=== PATIENT | female | born 1950 | race Native Hawaiian/Other Pacific Islander ===

== ENCOUNTER 2016-04-23 15:55 | Observation (INO) | payer OTHER ==
[~2016-04-23] VITALS: Ht 162.6 cm; Wt 106.1 kg
[~2016-04-23 15:55] MED LIST: ALBUTEROL0.083 % IN; ALBUTEROL2 MG/5 ML PO; AMOX500C85 PO; AMOX875T8 PO; ATIVAN2 MG PO; DILT30TA24; DILT30TA24 PO; ENALAPRIL10 MG; ENALAPRIL10 MG PO; GLIM4TAB PO; IPRASOL5 IN; LEVO500T PO; LORA2TAB7; MEDROL DOSEPAK4 MG PO; METF500T; METFTAB PO; METHO2.5; METHO2.5 PO; NEURONTIN; SERT100T; SERT100T PO; TRAZ100T PO
[2016-04-23 17:32] VITALS: BP 218/108; TEMP 98.3; Ht 162.6 cm; Wt 106.1 kg
[2016-04-23 18:26] LABS: PLATELET COUNT 277 K/uL (152-353)
[2016-04-23 18:39] LABS: POTASSIUM 3.7 mmol/L (3.6-5.2)
[2016-04-23] MEDS ORDERED: ENALAPRIL5 MG PO (18:55)
[2016-04-23] MEDS ORDERED: DULO30CA PO (18:56)
[2016-04-23] MEDS ORDERED: TRAM50TA PO (18:57)
[2016-04-23] MEDS ORDERED: SIMV10TA PO (18:57)
[2016-04-23] MEDS ORDERED: ASA LOW DOSE81 MG PO (18:58)
[2016-04-23] MEDS ORDERED: D31000 UNIT PO (18:59)
[2016-04-23] MEDS ORDERED: FLUTICASONE50 MCG (18:59)
[2016-04-23] MEDS ORDERED: VESICARE5 MG PO (19:00)
[2016-04-23] MEDS ORDERED: KETO2CRE EX (19:01)
[2016-04-23] MEDS ORDERED: INSUINJP SC (19:02)
[2016-04-23] MEDS ORDERED: HUMULIN R1 M1 SC (19:04)
[2016-04-23 20:00] VITALS: BP 215/70; TEMP 97.6
[2016-04-24] VITALS: BP 152/83; TEMP 98
[2016-04-24 04:00] VITALS: BP 196/70; TEMP 98
[2016-04-24 06:41] LABS: PLATELET COUNT 254 K/uL (152-353)
[2016-04-24 06:58] LABS: POTASSIUM 3.7 mmol/L (3.6-5.2)
[2016-04-24 08:30] VITALS: BP 195/78; TEMP 98.5
[2016-04-24 12:00] VITALS: BP 188/69; TEMP 98.5
[2016-04-24 16:00] VITALS: BP 160/82; TEMP 98.7
[2016-04-24 21:25] VITALS: BP 154/55; TEMP 98
[2016-04-25 00:11] VITALS: BP 173/68; TEMP 97.9
[2016-04-25 04:00] VITALS: BP 155/68; TEMP 97.7
[2016-04-25 05:29] LABS: PLATELET COUNT 239 K/uL (152-353)
[2016-04-25 05:50] LABS: POTASSIUM 3.9 mmol/L (3.6-5.2)
[2016-04-25 08:09] VITALS: BP 166/63; TEMP 98
[2016-04-25 12:03] VITALS: BP 158/55; TEMP 97.8
== END 2016-04-25 13:52 | disposition home or self-care (01) ==
LOC: MED/SURG 15:55
PROVIDERS: Internal Medicine; ADMIT Family Medicine
DX: J44.0 Chronic obstructive pulmonary disease with (acute) lower respiratory infection (principal); B02.8 Zoster with other complications; J20.9 Acute bronchitis, unspecified; J44.1 Chronic obstructive pulmonary disease with (acute) exacerbation; I10 Essential (primary) hypertension; E11.9 Type 2 diabetes mellitus without complications; N18.3 Chronic kidney disease, stage 3 (moderate)
CPT/HCPCS: 36415; 36591; 36600; 80053; 82550; 82805; 82947; 82948; 83735; 84484; 85027; 87040; 93005; 94640; 94664; 94760; 96367; 96372; 99220; G0378; G0379; J0360; J1170; J2930; J3490

== ENCOUNTER 2016-05-22 10:27 | Outpatient (CLI) | payer OTHER ==
[~2016-05-22 10:27] MED LIST changes: +ASA LOW DOSE81 MG PO; +D31000 UNIT PO; +DULO30CA PO; +ENALAPRIL5 MG PO; +FLUTICASONE50 MCG; +HUMULIN R1 M1 SC; +INSUINJP SC; +KETO2CRE EX; +SIMV10TA PO; +TRAM50TA PO; +VESICARE5 MG PO
[2016-05-22 11:24] LABS: PLATELET COUNT 280 K/uL (152-353)
[2016-05-22 11:26] LABS: POTASSIUM 4.9 mmol/L (3.6-5.2)
[2016-05-22 12:45] LABS: PARTIAL THROMBOPLASTIN TIME 26.9 SECONDS (24.5-33.6)
== END 2016-05-22 20:11 | disposition home or self-care (01) ==
LOC: LABW 10:27
PROVIDERS: Physician Assistant Medical
DX: I25.10 Atherosclerotic heart disease of native coronary artery without angina pectoris (principal); Z79.899 Other long term (current) drug therapy; Z51.81 Encounter for therapeutic drug level monitoring
CPT/HCPCS: 36415; 80053; 80061; 85027; 85610; 85730

== ENCOUNTER 2016-05-30 10:52 | Outpatient (CLI) | payer OTHER ==
[2016-05-30 11:41] LABS: POTASSIUM 4.8 mmol/L (3.6-5.2)
== END 2016-05-30 19:08 | disposition home or self-care (01) ==
LOC: LABW 10:52
PROVIDERS: Internal Medicine Cardiovascular Disease
DX: Z79.899 Other long term (current) drug therapy (principal); Z51.81 Encounter for therapeutic drug level monitoring
CPT/HCPCS: 36415; 80048

== ENCOUNTER 2016-07-03 10:12 | Outpatient (CLI) | payer OTHER ==
[2016-07-03 11:02] LABS: PLATELET COUNT 246 K/uL (152-353)
[2016-07-03 11:43] LABS: POTASSIUM 4.5 mmol/L (3.6-5.2)
== END 2016-07-03 19:12 | disposition home or self-care (01) ==
LOC: LABW 10:12
PROVIDERS: Family Medicine
DX: E11.9 Type 2 diabetes mellitus without complications (principal); I10 Essential (primary) hypertension; R53.83 Other fatigue; E83.42 Hypomagnesemia; E55.9 Vitamin D deficiency, unspecified
CPT/HCPCS: 36415; 80053; 80061; 81000; 82306; 83036; 83735; 84439; 84443; 84550; 85027

== ENCOUNTER 2016-12-27 10:51 | Outpatient (CLI) | payer OTHER ==
[2016-12-27 11:16] LABS: PLATELET COUNT 221 K/uL (152-353)
[2016-12-27 12:16] LABS: POTASSIUM 4.5 mmol/L (3.6-5.2)
== END 2016-12-27 18:56 | disposition home or self-care (01) ==
LOC: LABW 10:51
PROVIDERS: Family Medicine
DX: I12.9 Hypertensive chronic kidney disease with stage 1 through stage 4 chronic kidney disease, or unspecified chronic kidney disease (principal); N18.3 Chronic kidney disease, stage 3 (moderate); E11.9 Type 2 diabetes mellitus without complications; E83.42 Hypomagnesemia; B02.8 Zoster with other complications; E78.4 Other hyperlipidemia; F41.8 Other specified anxiety disorders
CPT/HCPCS: 80053; 80061; 82652; 83036; 83735; 84439; 84443; 84550; 85027

== ENCOUNTER 2017-01-01 15:22 | Outpatient (CLI) | payer OTHER | END 2017-01-01 19:04 | disposition home or self-care (01) | LOC: LAB 15:22 | DX: I12.9 Hypertensive chronic kidney disease with stage 1 through stage 4 chronic kidney disease, or unspecified chronic kidney disease (principal); N18.3 Chronic kidney disease, stage 3 (moderate); E11.9 Type 2 diabetes mellitus without complications; J44.9 Chronic obstructive pulmonary disease, unspecified; E83.42 Hypomagnesemia; E78.4 Other hyperlipidemia; F41.8 Other specified anxiety disorders; R82.99 Other abnormal findings in urine | CPT/HCPCS: 81000; 87077; 87086; 87088; 87186 ==

== ENCOUNTER 2017-01-14 09:11 | Outpatient (CLI) | payer OTHER | END 2017-01-14 19:04 | disposition home or self-care (01) | LOC: RAD 09:11 | DX: Z12.31 Encounter for screening mammogram for malignant neoplasm of breast (principal); Z78.0 Asymptomatic menopausal state ==

== ENCOUNTER 2018-11-03 08:55 | Outpatient (CLI) | payer OTHER | END 2018-11-03 23:25 | disposition home or self-care (01) | LOC: MRI 08:55 | DX: H53.132 Sudden visual loss, left eye (principal) | CPT/HCPCS: 36415; 82565; 84520; A9576 ==

== ENCOUNTER 2018-11-10 09:18 | Outpatient (CLI) | payer OTHER | END 2018-11-10 22:25 | disposition home or self-care (01) | LOC: MRI 09:18 | DX: H53.132 Sudden visual loss, left eye (principal) ==

== ENCOUNTER 2019-09-08 09:34 | Outpatient (CLI) | payer OTHER | END 2019-09-08 22:21 | disposition home or self-care (01) | LOC: CT 09:34 | DX: R06.02 Shortness of breath (principal); N18.3 Chronic kidney disease, stage 3 (moderate); I77.819 Aortic ectasia, unspecified site; M54.5 Low back pain; F41.8 Other specified anxiety disorders; I12.9 Hypertensive chronic kidney disease with stage 1 through stage 4 chronic kidney disease, or unspecified chronic kidney disease ==

== ENCOUNTER 2020-05-12 09:13 | Outpatient (CLI) | payer OTHER | END 2020-05-12 19:36 | disposition home or self-care (01) | LOC: US 09:13 | PROVIDERS: ATTEND Family Medicine | DX: M79.604 Pain in right leg (principal); I65.29 Occlusion and stenosis of unspecified carotid artery; E11.69 Type 2 diabetes mellitus with other specified complication; E78.2 Mixed hyperlipidemia; N18.30 Chronic kidney disease, stage 3 unspecified; I12.9 Hypertensive chronic kidney disease with stage 1 through stage 4 chronic kidney disease, or unspecified chronic kidney disease ==

== ENCOUNTER 2020-07-24 08:22 | Outpatient (CLI) | payer OTHER ==
[~2020-07-24] VITALS: Ht 162.6 cm; Wt 121.6 kg
== END 2020-07-24 19:17 | disposition home or self-care (01) ==
LOC: DIABINF 08:22
PROVIDERS: ATTEND Internal Medicine Endocrinology, Diabetes & Metabolism
DX: E11.65 Type 2 diabetes mellitus with hyperglycemia (principal); Z79.4 Long term (current) use of insulin; E11.22 Type 2 diabetes mellitus with diabetic chronic kidney disease; N18.32 Chronic kidney disease, stage 3b; E78.2 Mixed hyperlipidemia; I10 Essential (primary) hypertension; E66.01 Morbid (severe) obesity due to excess calories; Z68.42 Body mass index [BMI] 45.0-49.9, adult; F33.9 Major depressive disorder, recurrent, unspecified; M06.4 Inflammatory polyarthropathy; M15.0 Primary generalized (osteo)arthritis; M51.36 Other intervertebral disc degeneration, lumbar region
CPT/HCPCS: 82948; 96365; 96366; 96521; 99204; J1718; J1815

== ENCOUNTER 2020-07-25 08:34 | Outpatient (CLI) | payer OTHER ==
[~2020-07-25] VITALS: Ht 162.6 cm; Wt 121.6 kg
== END 2020-07-25 19:07 | disposition home or self-care (01) ==
LOC: DIABINF 08:34
PROVIDERS: ATTEND Internal Medicine Endocrinology, Diabetes & Metabolism
DX: E11.65 Type 2 diabetes mellitus with hyperglycemia (principal); Z79.4 Long term (current) use of insulin; E11.22 Type 2 diabetes mellitus with diabetic chronic kidney disease; N18.32 Chronic kidney disease, stage 3b; E78.2 Mixed hyperlipidemia; I10 Essential (primary) hypertension; E66.01 Morbid (severe) obesity due to excess calories; Z68.42 Body mass index [BMI] 45.0-49.9, adult; F33.9 Major depressive disorder, recurrent, unspecified; M06.4 Inflammatory polyarthropathy; M15.0 Primary generalized (osteo)arthritis; M51.36 Other intervertebral disc degeneration, lumbar region
CPT/HCPCS: 82948; 96365; 96366; 96521; 99214; J1718; J1815

== ENCOUNTER 2020-07-31 08:39 | Outpatient (CLI) | payer OTHER ==
[~2020-07-31] VITALS: Ht 162.6 cm; Wt 121.6 kg
== END 2020-07-31 19:09 | disposition home or self-care (01) ==
LOC: DIABINF 08:39
PROVIDERS: ATTEND Internal Medicine Endocrinology, Diabetes & Metabolism
DX: E11.65 Type 2 diabetes mellitus with hyperglycemia (principal); Z79.4 Long term (current) use of insulin; E11.22 Type 2 diabetes mellitus with diabetic chronic kidney disease; N18.32 Chronic kidney disease, stage 3b; E78.2 Mixed hyperlipidemia; I10 Essential (primary) hypertension; E66.01 Morbid (severe) obesity due to excess calories; Z68.42 Body mass index [BMI] 45.0-49.9, adult; F33.9 Major depressive disorder, recurrent, unspecified; M06.4 Inflammatory polyarthropathy; M15.0 Primary generalized (osteo)arthritis; M51.36 Other intervertebral disc degeneration, lumbar region
CPT/HCPCS: 82948; 96365; 96366; 96521; 99214; J1718; J1815

== ENCOUNTER 2020-08-01 08:38 | Outpatient (CLI) | payer OTHER ==
[~2020-08-01] VITALS: Ht 162.6 cm; Wt 121.6 kg
== END 2020-08-01 21:07 | disposition home or self-care (01) ==
LOC: DIABINF 08:38
PROVIDERS: ATTEND Internal Medicine Endocrinology, Diabetes & Metabolism
DX: E11.65 Type 2 diabetes mellitus with hyperglycemia (principal); Z79.4 Long term (current) use of insulin; E11.22 Type 2 diabetes mellitus with diabetic chronic kidney disease; N18.32 Chronic kidney disease, stage 3b; E78.2 Mixed hyperlipidemia; I10 Essential (primary) hypertension; E66.01 Morbid (severe) obesity due to excess calories; Z68.42 Body mass index [BMI] 45.0-49.9, adult; F33.9 Major depressive disorder, recurrent, unspecified; M06.4 Inflammatory polyarthropathy; M15.0 Primary generalized (osteo)arthritis; M51.36 Other intervertebral disc degeneration, lumbar region
CPT/HCPCS: 82948; 96365; 96366; 96521; 99214; J1718; J1815

== ENCOUNTER 2020-08-07 08:17 | Outpatient (CLI) | payer OTHER ==
[~2020-08-07] VITALS: Ht 162.6 cm; Wt 121.6 kg
== END 2020-08-07 19:41 | disposition home or self-care (01) ==
LOC: DIABINF 08:17
PROVIDERS: ATTEND Internal Medicine Endocrinology, Diabetes & Metabolism
DX: E11.65 Type 2 diabetes mellitus with hyperglycemia (principal); Z79.4 Long term (current) use of insulin; E11.22 Type 2 diabetes mellitus with diabetic chronic kidney disease; N18.32 Chronic kidney disease, stage 3b; E78.2 Mixed hyperlipidemia; I10 Essential (primary) hypertension; E66.01 Morbid (severe) obesity due to excess calories; Z68.42 Body mass index [BMI] 45.0-49.9, adult; F33.9 Major depressive disorder, recurrent, unspecified; M06.4 Inflammatory polyarthropathy; M15.0 Primary generalized (osteo)arthritis; M51.36 Other intervertebral disc degeneration, lumbar region
CPT/HCPCS: 82948; 96365; 96366; 96521; 99214; J1718; J1815

== ENCOUNTER 2020-08-08 08:29 | Outpatient (CLI) | payer OTHER ==
[~2020-08-08] VITALS: Ht 162.6 cm; Wt 121.6 kg
== END 2020-08-08 20:59 | disposition home or self-care (01) ==
LOC: DIABINF 08:29
PROVIDERS: ATTEND Internal Medicine Endocrinology, Diabetes & Metabolism
DX: E11.65 Type 2 diabetes mellitus with hyperglycemia (principal); Z79.4 Long term (current) use of insulin; E11.22 Type 2 diabetes mellitus with diabetic chronic kidney disease; N18.32 Chronic kidney disease, stage 3b; E78.2 Mixed hyperlipidemia; I10 Essential (primary) hypertension; E66.01 Morbid (severe) obesity due to excess calories; Z68.42 Body mass index [BMI] 45.0-49.9, adult; F33.9 Major depressive disorder, recurrent, unspecified; M06.4 Inflammatory polyarthropathy; M15.0 Primary generalized (osteo)arthritis; M51.36 Other intervertebral disc degeneration, lumbar region
CPT/HCPCS: 82948; 96365; 96366; 96521; 99214; J1718; J1815

== ENCOUNTER 2020-08-14 08:30 | Outpatient (CLI) | payer OTHER ==
[~2020-08-14] VITALS: Ht 162.6 cm; Wt 121.6 kg
== END 2020-08-14 19:23 | disposition home or self-care (01) ==
LOC: DIABINF 08:30
PROVIDERS: ATTEND Internal Medicine Endocrinology, Diabetes & Metabolism
DX: E11.65 Type 2 diabetes mellitus with hyperglycemia (principal); Z79.4 Long term (current) use of insulin; E11.22 Type 2 diabetes mellitus with diabetic chronic kidney disease; N18.32 Chronic kidney disease, stage 3b; E78.2 Mixed hyperlipidemia; I10 Essential (primary) hypertension; E66.01 Morbid (severe) obesity due to excess calories; Z68.42 Body mass index [BMI] 45.0-49.9, adult; F33.9 Major depressive disorder, recurrent, unspecified; M06.4 Inflammatory polyarthropathy; M15.0 Primary generalized (osteo)arthritis; M51.36 Other intervertebral disc degeneration, lumbar region
CPT/HCPCS: 82948; 96365; 96366; 96521; 99214; J1718; J1815

== ENCOUNTER 2020-08-15 08:31 | Outpatient (CLI) | payer OTHER ==
[~2020-08-15] VITALS: Ht 162.6 cm; Wt 121.6 kg
== END 2020-08-15 20:15 | disposition home or self-care (01) ==
LOC: DIABINF 08:31
PROVIDERS: ATTEND Internal Medicine Endocrinology, Diabetes & Metabolism
DX: E11.65 Type 2 diabetes mellitus with hyperglycemia (principal); Z79.4 Long term (current) use of insulin; E11.22 Type 2 diabetes mellitus with diabetic chronic kidney disease; N18.32 Chronic kidney disease, stage 3b; E78.2 Mixed hyperlipidemia; I10 Essential (primary) hypertension; E66.01 Morbid (severe) obesity due to excess calories; Z68.42 Body mass index [BMI] 45.0-49.9, adult; F33.9 Major depressive disorder, recurrent, unspecified; M06.4 Inflammatory polyarthropathy; M15.0 Primary generalized (osteo)arthritis; M51.36 Other intervertebral disc degeneration, lumbar region
CPT/HCPCS: 82948; 96365; 96366; 96521; 99214; J1718; J1815

== ENCOUNTER 2020-08-21 08:56 | Outpatient (CLI) | payer OTHER ==
[~2020-08-21] VITALS: Ht 162.6 cm; Wt 121.6 kg
== END 2020-08-21 19:14 | disposition home or self-care (01) ==
LOC: DIABINF 08:56
PROVIDERS: ATTEND Internal Medicine Endocrinology, Diabetes & Metabolism
DX: E11.65 Type 2 diabetes mellitus with hyperglycemia (principal); Z79.4 Long term (current) use of insulin; E11.22 Type 2 diabetes mellitus with diabetic chronic kidney disease; N18.32 Chronic kidney disease, stage 3b; E78.2 Mixed hyperlipidemia; I10 Essential (primary) hypertension; E66.01 Morbid (severe) obesity due to excess calories; Z68.42 Body mass index [BMI] 45.0-49.9, adult; F33.9 Major depressive disorder, recurrent, unspecified; M06.4 Inflammatory polyarthropathy; M15.0 Primary generalized (osteo)arthritis; M51.36 Other intervertebral disc degeneration, lumbar region
CPT/HCPCS: 82948; 96365; 96366; 96521; 99214; J1718; J1815

== ENCOUNTER 2020-08-28 08:22 | Outpatient (CLI) | payer OTHER ==
[~2020-08-28] VITALS: Ht 154.9 cm; Wt 121.6 kg
== END 2020-08-28 21:25 | disposition home or self-care (01) ==
LOC: DIABINF 08:22
PROVIDERS: ATTEND Internal Medicine Endocrinology, Diabetes & Metabolism
DX: E11.65 Type 2 diabetes mellitus with hyperglycemia (principal); Z79.4 Long term (current) use of insulin; E11.22 Type 2 diabetes mellitus with diabetic chronic kidney disease; N18.32 Chronic kidney disease, stage 3b; E78.2 Mixed hyperlipidemia; I10 Essential (primary) hypertension; E66.01 Morbid (severe) obesity due to excess calories; Z68.42 Body mass index [BMI] 45.0-49.9, adult; F33.9 Major depressive disorder, recurrent, unspecified; M06.4 Inflammatory polyarthropathy; M15.0 Primary generalized (osteo)arthritis; M51.36 Other intervertebral disc degeneration, lumbar region
CPT/HCPCS: 82948; 96365; 96366; 96521; J1815; J1817

== ENCOUNTER 2020-09-05 08:18 | Outpatient (CLI) | payer OTHER ==
[~2020-09-05] VITALS: Ht 162.6 cm; Wt 121.6 kg
== END 2020-09-05 19:31 | disposition home or self-care (01) ==
LOC: DIABINF 08:18
PROVIDERS: ATTEND Internal Medicine Endocrinology, Diabetes & Metabolism
DX: E11.65 Type 2 diabetes mellitus with hyperglycemia (principal); Z79.4 Long term (current) use of insulin; E11.22 Type 2 diabetes mellitus with diabetic chronic kidney disease; N18.32 Chronic kidney disease, stage 3b; E78.2 Mixed hyperlipidemia; I10 Essential (primary) hypertension; E66.01 Morbid (severe) obesity due to excess calories; Z68.42 Body mass index [BMI] 45.0-49.9, adult; F33.0 Major depressive disorder, recurrent, mild; M06.4 Inflammatory polyarthropathy; M15.0 Primary generalized (osteo)arthritis; M51.36 Other intervertebral disc degeneration, lumbar region
CPT/HCPCS: 82948; 96365; 96366; 96521; J1815; J1817

== ENCOUNTER 2020-09-11 08:31 | Outpatient (CLI) | payer OTHER ==
[~2020-09-11] VITALS: Ht 162.6 cm; Wt 121.6 kg
== END 2020-09-11 20:55 | disposition home or self-care (01) ==
LOC: DIABINF 08:31
PROVIDERS: ATTEND Internal Medicine Endocrinology, Diabetes & Metabolism
DX: E11.22 Type 2 diabetes mellitus with diabetic chronic kidney disease (principal); N18.32 Chronic kidney disease, stage 3b; Z79.4 Long term (current) use of insulin; I10 Essential (primary) hypertension; E78.2 Mixed hyperlipidemia; E66.01 Morbid (severe) obesity due to excess calories; Z68.42 Body mass index [BMI] 45.0-49.9, adult; F32.9 Major depressive disorder, single episode, unspecified; M06.4 Inflammatory polyarthropathy; M15.0 Primary generalized (osteo)arthritis; M51.36 Other intervertebral disc degeneration, lumbar region
CPT/HCPCS: 82948; 96365; 96366; 96521; J1815; J1817

== ENCOUNTER 2020-09-19 08:30 | Outpatient (CLI) | payer OTHER ==
[~2020-09-19] VITALS: Ht 162.6 cm; Wt 121.6 kg
== END 2020-09-19 22:06 | disposition home or self-care (01) ==
LOC: DIABINF 08:30
PROVIDERS: ATTEND Internal Medicine Endocrinology, Diabetes & Metabolism
DX: E11.22 Type 2 diabetes mellitus with diabetic chronic kidney disease (principal); N18.32 Chronic kidney disease, stage 3b; Z79.4 Long term (current) use of insulin; I10 Essential (primary) hypertension; E78.2 Mixed hyperlipidemia; E66.01 Morbid (severe) obesity due to excess calories; Z68.42 Body mass index [BMI] 45.0-49.9, adult; F32.9 Major depressive disorder, single episode, unspecified; M06.4 Inflammatory polyarthropathy; M15.0 Primary generalized (osteo)arthritis; M51.36 Other intervertebral disc degeneration, lumbar region
CPT/HCPCS: 82948; 96365; 96366; 96521; J1815; J1817

== ENCOUNTER 2020-09-25 08:40 | Outpatient (CLI) | payer OTHER ==
[~2020-09-25] VITALS: Ht 162.6 cm; Wt 121.6 kg
== END 2020-09-25 12:03 | disposition home or self-care (01) ==
LOC: DIABINF 08:40
PROVIDERS: ATTEND Internal Medicine Endocrinology, Diabetes & Metabolism
DX: E11.22 Type 2 diabetes mellitus with diabetic chronic kidney disease (principal); N18.32 Chronic kidney disease, stage 3b; Z79.4 Long term (current) use of insulin; I10 Essential (primary) hypertension; E78.2 Mixed hyperlipidemia; E66.01 Morbid (severe) obesity due to excess calories; Z68.42 Body mass index [BMI] 45.0-49.9, adult; F32.9 Major depressive disorder, single episode, unspecified; M06.4 Inflammatory polyarthropathy; M15.0 Primary generalized (osteo)arthritis; M51.36 Other intervertebral disc degeneration, lumbar region
CPT/HCPCS: 82948; 96365; 96366; 96521; J1815; J1817

== ENCOUNTER 2020-10-30 08:15 | Outpatient (CLI) | payer OTHER ==
[~2020-10-30] VITALS: Ht 162.6 cm; Wt 121.6 kg
== END 2020-10-30 21:19 | disposition home or self-care (01) ==
LOC: DIABINF 08:15
PROVIDERS: ATTEND Internal Medicine Endocrinology, Diabetes & Metabolism
DX: E11.22 Type 2 diabetes mellitus with diabetic chronic kidney disease (principal); N18.32 Chronic kidney disease, stage 3b; Z79.4 Long term (current) use of insulin; I10 Essential (primary) hypertension; E78.2 Mixed hyperlipidemia; E66.01 Morbid (severe) obesity due to excess calories; Z68.42 Body mass index [BMI] 45.0-49.9, adult; F32.9 Major depressive disorder, single episode, unspecified; M06.4 Inflammatory polyarthropathy; M15.0 Primary generalized (osteo)arthritis; M51.36 Other intervertebral disc degeneration, lumbar region
CPT/HCPCS: 82948; 96365; 96366; 96521; J1815; J1817

== ENCOUNTER 2020-11-07 08:37 | Outpatient (CLI) | payer OTHER ==
[~2020-11-07] VITALS: Ht 162.6 cm; Wt 121.6 kg
== END 2020-11-07 21:33 | disposition home or self-care (01) ==
LOC: DIABINF 08:37
PROVIDERS: ATTEND Nurse Practitioner
DX: E11.22 Type 2 diabetes mellitus with diabetic chronic kidney disease (principal); Z79.4 Long term (current) use of insulin; I10 Essential (primary) hypertension; E78.2 Mixed hyperlipidemia; E66.01 Morbid (severe) obesity due to excess calories; Z68.42 Body mass index [BMI] 45.0-49.9, adult; F32.9 Major depressive disorder, single episode, unspecified; M06.4 Inflammatory polyarthropathy; M15.0 Primary generalized (osteo)arthritis; M51.36 Other intervertebral disc degeneration, lumbar region
CPT/HCPCS: 82948; 96365; 96366; 96521; J1815; J1817

== ENCOUNTER 2020-11-13 08:06 | Outpatient (CLI) | payer OTHER ==
[~2020-11-13] VITALS: Ht 162.6 cm; Wt 121.6 kg
== END 2020-11-13 20:52 | disposition home or self-care (01) ==
LOC: DIABINF 08:06
PROVIDERS: ATTEND Nurse Practitioner
DX: E11.65 Type 2 diabetes mellitus with hyperglycemia (principal); E11.22 Type 2 diabetes mellitus with diabetic chronic kidney disease; N18.32 Chronic kidney disease, stage 3b; Z79.4 Long term (current) use of insulin; I10 Essential (primary) hypertension; E78.2 Mixed hyperlipidemia; E66.01 Morbid (severe) obesity due to excess calories; Z68.42 Body mass index [BMI] 45.0-49.9, adult; F32.9 Major depressive disorder, single episode, unspecified; M06.4 Inflammatory polyarthropathy; M15.0 Primary generalized (osteo)arthritis; M51.36 Other intervertebral disc degeneration, lumbar region
CPT/HCPCS: 82948; 96365; 96366; 96521; J1815; J1817

== ENCOUNTER 2021-09-06 10:04 | Emergency (ER) | payer OTHER ==
[~2021-09-06] VITALS: Ht 162.6 cm; Wt 121.6 kg
[2021-09-06 10:07] VITALS: BP 177/66; TEMP 98
== END 2021-09-06 12:00 | disposition home or self-care (01) ==
LOC: ED 10:04
DX: S00.03XA Contusion of scalp, initial encounter (principal); S13.8XXA Sprain of joints and ligaments of other parts of neck, initial encounter; M06.8A Other specified rheumatoid arthritis, other specified site; S80.212A Abrasion, left knee, initial encounter; S50.312A Abrasion of left elbow, initial encounter; W01.198A Fall on same level from slipping, tripping and stumbling with subsequent striking against other object, initial encounter; Y92.481 Parking lot as the place of occurrence of the external cause
CPT/HCPCS: 90715; 96372; 99283

== ENCOUNTER 2022-03-20 10:04 | Outpatient (CLI) | payer OTHER | END 2022-03-20 19:37 | disposition home or self-care (01) | LOC: RAD 10:04 | PROVIDERS: ATTEND Family Medicine | DX: Z12.31 Encounter for screening mammogram for malignant neoplasm of breast (principal); Z13.820 Encounter for screening for osteoporosis; N95.8 Other specified menopausal and perimenopausal disorders ==

== ENCOUNTER 2022-04-08 11:09 | Outpatient (CLI) | payer OTHER | END 2022-04-08 18:57 | disposition home or self-care (01) | LOC: RAD 11:09 | PROVIDERS: ATTEND Nurse Practitioner Family | DX: M05.79 Rheumatoid arthritis with rheumatoid factor of multiple sites without organ or systems involvement (principal); M17.0 Bilateral primary osteoarthritis of knee; M35.05 Sjogren syndrome with inflammatory arthritis; R06.02 Shortness of breath; Z79.69 Long term (current) use of other immunomodulators and immunosuppressants ==